=== PATIENT | female | born 1990 | race Caucasian/White ===

== ENCOUNTER 2017-02-14 14:47 | Emergency (ER) | payer OTHER ==
[~2017-02-14] VITALS: Ht 152.4 cm; Wt 145.4 kg
[2017-02-14] MEDS ORDERED: Famotidine Inj 20 MG in IV Premix 1 EACH IV ONE (14:55)
--- NOTE | 2017-02-14 14:55 | ED.REPORT ---
HPI-Allergic Reaction Date of Service Feb 14, 2017 ED Provider: Nura Matthews MD Patient is a 26 year old female with a history of asthma who presents to the ED complaining of throat swelling after being stung by a bee. Associated symptoms include difficulty swallowing. The patient reports that she is allergic to bees and is concerned she is having a reaction. Patient has no other complaints. Nursing Notes Stated Complaint: BEE STING/ ALLERGIC REACTION Chief Complaint: Allergic Reaction Nursing Notes Reviewed: Yes Allergies: Coded Allergies: bee venom protein (honey bee) (Verified Allergy, Severe, anaphalaxic, ) General Time Seen by MD: 14:54 Chief Complaint Allergic reaction Hx Obtained From: Patient Arrived By: Walk-in Onset Occurred: Just prior to arrival Context of Onset: Insect bite/sting Symptom Duration: Since onset Location: : Neck Recent Healthcare: No recent hospitalization Past Medical History Past Medical History Reports: Asthma Smoking History Unknown if Ever Smoker Social History Other Social History: Good social support Ambulatory Status Independent Review of Systems Review of Systems Note: +difficulty swallowing Constitutional: Denies: Chills, Fever Ears / Nose / Throat: Reports: Throat swelling Respiratory: Denies: Non-productive cough, Shortness of breath Skin: Denies Itching, Denies Rash Complete sys rev & neg: except as marked. Physical Exam Initial Vital Signs Vital Signs (First) Date Time Temp Pulse Resp B/P Pulse Ox O2 Delivery O2 Flow Rate FiO2 02/14/17 14:58 91 15 135/80 98 Room Air Initial VS: Reviewed General/Constitutional: Awake, Alert, No acute distress Respiratory / Chest: Atraumatic, Breath sounds NL, Breath sounds = bilat, No respiratory distress Cardiovascular: Heart rate NL, Regular rhythm, Heart sounds NL Skin: Atraumatic, Color NL, No rash, Warm, Dry Head / Eyes: Atraumatic, Normocephalic, PERRL, EOMI ENT: Atraumatic, Airway patent, Mucous membranes moist Neurologic: Oriented X3, Speech NL Neck: Atraumatic, Supple, No swelling no apparent bee sting Interpretation & Diagnostics Lab Results Interpretation Test 02/14/17 15:35 Hold Purple Top Tube Received (Received) Hold Blue Top Tube Received (Received) Hold Red Top Tube Received (Received) Hold [place] Top Tube Received (Received) Re-Eval/Medical Decision Re-Evaluation/Progress : Time of Eval: 15:58 Patient Status: Condition resolved Re-Evaluation/Progress Note: Patient denies any current symptoms. Counseled Regarding: Diagnosis, Lab results, Need for follow-up, When/why to return to ED Discharge & Departure Primary Impression: Bee sting Encounter type: initial encounter Injury intent: accidental or unintentional Qualified Code: T63.441A - Toxic effect of venom of bees, accidental (unintentional), initial encounter Disposition: Home Discharge Condition All VS Reviewed: Yes Condition: Stable Patient Instructions: Insect Bite or Sting (ED) Additional Instructions: No dangerous allergic reaction is suspected at this time. Use Benadryl 25 or 50 mg every 6 hours as needed to keep symptoms under control. Scribe Attestation Portions of this note were transcribed by Cinda Chambers. I, Dr. Matthews personally performed the history, physical exam and medical decision-making; I reviewed and confirmed the accuracy of the information in the transcribed note. Signed by: Ferdinand Barrera, 02/14/17 Nura Matthews MD Feb 14, 2017 14:55 Linda Chambers Feb 14, 2017 15:33
[2017-02-14 14:58] VITALS: BP 135/80; PULSE 91; RESP 15; O2SAT 98
[2017-02-14 16:06] VITALS: BP 128/85; PULSE 87; RESP 16; O2SAT 100
== END 2017-02-14 16:06 | disposition home or self-care (01) ==
LOC: SED 14:47
DX: T63.441A Toxic effect of venom of bees, accidental (unintentional), initial encounter (principal); R13.19 Other dysphagia; J45.909 Unspecified asthma, uncomplicated; Z91.030 Bee allergy status; X58.XXXA Exposure to other specified factors, initial encounter; Y93.9 Activity, unspecified; Y92.9 Unspecified place or not applicable; Y99.8 Other external cause status
CPT/HCPCS: 96374; 96375; 99284; J1200; J3490